=== PATIENT | male | born 1950 | race Two or more races ===

== ENCOUNTER 2017-03-22 17:47 | Inpatient (IN) | payer MEDICARE, OTHER ==
[~2017-03-22] VITALS: Ht 177.8 cm; Wt 78.9 kg
[2017-03-22 20:00] VITALS: BP 127/75
[2017-03-22] MEDS ORDERED: ESCI20TA PO (21:19)
[2017-03-22] MEDS ORDERED: CEPH500C2 PO (21:19)
[2017-03-22] MEDS ORDERED: LEVO80CA PO (21:19)
[2017-03-22] MEDS ORDERED: CLON0.5T4 PO (21:19)
[2017-03-22] MEDS ORDERED: ATOR40TA PO (21:19)
[2017-03-22] MEDS ORDERED: LAMO200T39 PO (21:19)
[2017-03-22] MEDS ORDERED: RIFA300C4 PO (21:19)
[2017-03-22] MEDS ORDERED: LOSA50TA21 PO (21:19)
[2017-03-22] MEDS ORDERED: ARMO150T4 PO (21:19)
[2017-03-22 23:58] VITALS: BP 128/88
[2017-03-23] VITALS: BP 128/88
[2017-03-23] MEDS ORDERED: MAGNESIUM HYDROXIDE 30 ML UDC PO PRN (00:30)
[2017-03-23] MEDS ORDERED: ACETAMINOPHEN 325 MG TABLET PO PRN (00:30)
[2017-03-23] MEDS ORDERED: ZOLPIDEM TARTRATE 5 MG TABLET PO PRN ×2 (00:30→09:30)
[2017-03-23] MEDS ORDERED: HYDROCODONE/APAP 5/325MG 1 EACH TABLET PO PRN (00:30)
[2017-03-23] MEDS ORDERED: ONDANSETRON HCL/PF 4 MG/2 ML VIAL IVP PRN (00:30)
[2017-03-23] MEDS ORDERED: Z GUARD REMEDY 2 OZ OINT TP PRN (00:30)
[2017-03-23] MEDS ORDERED: MAG HYDROX/AL HYDROX/SIMETH 30 ML UDC PO PRN (00:30)
[2017-03-23 08:00] VITALS: BP 152/72
--- NOTE | 2017-03-23 08:00 | NUR ---
MS NR RECEIVED ON BED, AWAKE,ALERT,ORIENTED X4,NOT IN ANY FORM OF DISTRESS, RESPIRATIONS EVEN AND UNLABORED,NO SOB NOTED. LUNG ARE CLEAR,ABDOMEN SOFT,POSITIVE BOWEL SOUNDS, DENIES PAIN AT THIS TIME, WILL MONITOR PATIENT'S CONDITION.
[2017-03-23] MEDS ORDERED: Medication Not On Formulary EA (Armodafinil (Nuvigil) 1 TAB) PO SCH (09:00)
[2017-03-23] MEDS ORDERED: LEVOMILNACIPRAN HYDROCHLORIDE 80 MG PO SCH (09:00)
[2017-03-23] MEDS ORDERED: ATORVASTATIN 40 MG TABLET PO SCH (09:00)
--- NOTE | 2017-03-23 09:13 | NUR ---
MS CERRATO BREAKFAST SERVED,WAITING FOR DUE MEDS TO VERIFY.
[2017-03-23] MEDS ORDERED: ESCITALOPRAM OXALATE (10 MG) 10 MG TABLET PO SCH (09:30)
[2017-03-23] MEDS: CEPHALEXIN MONOHYDRATE 500 MG CAPSULE PO SCH ×3 (09:32→18:10)
[2017-03-23] MEDS: RIFAMPIN 300 MG CAPSULE PO SCH ×2 (09:32→18:10)
[2017-03-23] MEDS: clonazePAM 0.5 MG TABLET PO SCH ×2 (09:33→18:10)
[2017-03-23] MEDS: LOSARTAN POTASSIUM 50 MG TABLET PO SCH (09:33)
[2017-03-23] MEDS: LamoTRIgine 100 MG TABLET PO SCH (09:39)
[2017-03-23] MEDS ORDERED: ESCITALOPRAM OXALATE (10 MG) 10 MG TABLET PO ONE (10:00)
[2017-03-23 10:35] LABS: CALCIUM, SERUM 9.2 mg/dL (8.5-10.1); MAGNESIUM 2.4 mg/dL (1.8-2.4); PHOSPHORUS 3.7 mg/dL (2.5-4.9); POTASSIUM 4.2 mmol/L (3.5-5.1)
--- NOTE | 2017-03-23 10:50 | NUR ---
ms rn was seen by dr. leydi solomon/ orders made and carried out.
[2017-03-23 12:00] VITALS: BP 129/93
--- NOTE | 2017-03-23 12:00 | NUR ---
MS RN TOLD PATIENT THAT PROCEDURE WILL BE DONE AFTER BASIC ACOUSTIC ANALYST IS DONE W/ ONE PATIENT.
[2017-03-23 12:23] LABS: BASOPHILS % (AUTO) 0.7 % (0.0-2.0); EOSINOPHILS # (AUTO) 0.2 /CMM (0.0-0.7); EOSINOPHILS % (AUTO) 4.5 % (0.0-6.0); HEMATOCRIT 46 % (39-51); HEMOGLOBIN 15.5 g/dL (13.5-17.5); LYMPHOCYTES # (AUTO) 1.8 /CMM (0.8-4.8); LYMPHOCYTES % (AUTO) 46.9 % (20.0-44.0); MEAN CORPUSCULAR HEMOGLOBIN 30 PG (26.0-33.0); MEAN CORPUSCULAR HGB CONC 34 g/dl (31.0-36.0); MEAN CORPUSCULAR VOLUME 90 fL (80-96); MONOCYTES # (AUTO) 0.7 /CMM (0.1-1.30); MONOCYTES % (AUTO) 17.9 % (2.0-12.0); NEUTROPHILS # (AUTO) 1.2 /CMM (1.8-8.9); PLATELET COUNT (AUTO) 200 /CMM (150-450); RDW COEFFICIENT OF VARIATION 13.5 (11.5-15.0); RED BLOOD CELL COUNT(AUTO) 5.17 MIL/uL (4.5-6.0); WHITE BLOOD COUNT (AUTO) 3.9 K/uL (4.3-11.0)
--- NOTE | 2017-03-23 13:00 | NUR ---
MS RN ECHO AND DUPPLEX DONE, WILL WAIT FOR RESULT.
[2017-03-23 13:27] LABS: MONOCYTES % (MANUAL) 12 % (0-11.0); NEUTROPHILS % (MANUAL) 40 (42-76); REACTIVE LYMPHOCYTES 1 % (0-0)
[2017-03-23 13:28] LABS: EOSINOPHILS % (MANUAL) 9 % (0-4); LYMPHOCYTES % (MANUAL) 38 % (16-48)
[2017-03-23] MEDS: ENOXAPARIN SODIUM 80 MG/0.8 ML DISP.SYRIN SQ SCH ×2 (13:58→23:59)
--- NOTE | 2017-03-23 14:00 | NUR ---
MS RN NOTIFIED DR. ROCHA, ABOUT DUPPLEX AND ECHO RESULT, NO FURTHER ORDERS NOTED.
--- NOTE | 2017-03-23 15:00 | NUR ---
MS RN WANTS TO SPEAK W/ RAMIRO ROBLES MD.
--- NOTE | 2017-03-23 15:40 | NUR ---
MS SAQIB ROCHA TEXED BACK THAT SHE WILL ANSWER AND ADDRESS ALL QUESTIONS IN AM.
[2017-03-23 16:00] VITALS: BP 138/88
--- NOTE | 2017-03-23 16:00 | NUR ---
MS RN, WAS SEEN BY BOAT OFFICER, COMPLAINING A LOT. CHARGE NURSE AWARE.
--- NOTE | 2017-03-23 17:00 | NUR ---
MS DOOR LINER HELPER NURSE TEXT DR. WILKINSON TO SEE PATIENT.
--- NOTE | 2017-03-23 18:00 | NUR ---
MS RN CALLED, WILL SEE PATIENT IN AN HOUR, PATIENT NOTIFIED.
--- NOTE | 2017-03-23 18:32 | NUR ---
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 He is ambulatory and independent with adl's. can provide transportation when discharge. Addendum: 03/23/17 at 1833 by LUZ BERNAL RN Amended: Links added.
--- NOTE | 2017-03-23 18:32 | NUR ---
MS RN ON BED,DUE MEDS GIVEN,TOLERATED WELL.
--- NOTE | 2017-03-23 18:41 | NUR ---
MS RN ON BED, WILL ENDORSE TO SAFETY AND HEALTH MANAGER FOR CONTINUITY OF CARE.
[2017-03-23 20:00] VITALS: BP 116/69
--- NOTE | 2017-03-23 20:00 | NUR ---
RN NOTES RESTING COMFORTABLY IN BED WITH NO RESPIRATORY DISTRESS OR SHORTNESS OF BREATH. BREATHING EVEN AND UNLABORED. NO COMPLAINT OF PAIN. ALERT AND ORIENTED. VERBALLY ABLE TO COMMUNICATE NEEDS. AMBULATORY. CONTINENT OF BOWEL AND BLADDER FUNCTION. NEEDS ATTENDED. KEPT CLEAN AND DRY. WILL CONTINUE TO MONITOR.
[2017-03-24] VITALS: BP 135/85
[2017-03-24 04:00] VITALS: BP 132/90
--- NOTE | 2017-03-24 07:08 | NUR ---
RN CLOSING NOTES NO DISTRESS NOTED, BREATHING EVEN AND UNLABORED. NO MANIFESTATION OF PAIN OR DISCOMFORT. NO SIGNIFICANT CHANGE OF CONDITION. WILL ENDORSE TO AM SHIFT FOR CONTINUITY OF CARE
--- NOTE | 2017-03-24 07:15 | NUR ---
FLAME HARDENING MACHINE SETTER OPENING NOTE RECEIVED SBAR REPORT AT THE BEDSIDE. PATIENT IS A/OX4, AWAKE AND COOPERATIVE. PATIENT IS IN BED, BED IS LOCKED, IN LOWEST POSITION, SIDE RIALS UP X 2. DENIES PAIN AT THIS TIME. REPORTS DISCOMFORT AT RAC IV SITE WHEN FOLDING THE ARM. NO S/S OF INFILTRATION PRESENT. PATIENT STATED HE WILL THINK ABOUT AGREEING TO INSERTION OF ANOTHER IV AT A DIFFERENT SITE. CHEST IS RISING EQUALLY BILATERALLY. SPO2 98% RA. PATIENT WAS EDUCATED TO CALL FOR ASSISTANCE USING THE CALL LIGHT AND WAS ABLE TO VERBALIZE UNDERSTANDING OF THE TEACHING. CALL LIGHT WITHIN REACH. ALL NEEDS ATTENDED TO. WILL CONTINUE TO ASSESS/MONITOR THROUGHOUT THE SHIFT.
--- NOTE | 2017-03-24 07:17 | NUR ---
[employer] NOTE EXTERNAL JUKE BOX MECHANIC READING SR 97
[2017-03-24 07:46] LABS: BASOPHILS % (AUTO) 0.5 % (0.0-2.0); EOSINOPHILS # (AUTO) 0.1 /CMM (0.0-0.7); EOSINOPHILS % (AUTO) 2.9 % (0.0-6.0); HEMATOCRIT 48 % (39-51); HEMOGLOBIN 16.4 g/dL (13.5-17.5); LYMPHOCYTES # (AUTO) 2.5 /CMM (0.8-4.8); LYMPHOCYTES % (AUTO) 51.5 % (20.0-44.0); MEAN CORPUSCULAR HEMOGLOBIN 30 PG (26.0-33.0); MEAN CORPUSCULAR HGB CONC 34 g/dl (31.0-36.0); MEAN CORPUSCULAR VOLUME 88 fL (80-96); MONOCYTES # (AUTO) 0.7 /CMM (0.1-1.30); MONOCYTES % (AUTO) 13.8 % (2.0-12.0); NEUTROPHILS # (AUTO) 1.5 /CMM (1.8-8.9); NEUTROPHILS % (AUTO) 31.3 % (43.0-81.0); PLATELET COUNT (AUTO) 208 /CMM (150-450); RDW COEFFICIENT OF VARIATION 13.3 (11.5-15.0); RED BLOOD CELL COUNT(AUTO) 5.49 MIL/uL (4.5-6.0); WHITE BLOOD COUNT (AUTO) 4.9 K/uL (4.3-11.0)
[2017-03-24 08:00] VITALS: BP 131/94
[2017-03-24 08:08] LABS: CREATININE 1.1 mg/dL (0.6-1.3); MAGNESIUM 2.1 mg/dL (1.8-2.4); PHOSPHORUS 3.1 mg/dL (2.5-4.9); POTASSIUM 3.6 mmol/L (3.5-5.1)
[2017-03-24] MEDS ORDERED: ESCITALOPRAM OXALATE (10 MG) 10 MG TABLET PO SCH (09:00)
[2017-03-24] MEDS: CEPHALEXIN MONOHYDRATE 500 MG CAPSULE PO SCH ×2 (09:24→13:17)
[2017-03-24] MEDS: RIFAMPIN 300 MG CAPSULE PO SCH (09:24)
[2017-03-24] MEDS: LOSARTAN POTASSIUM 50 MG TABLET PO SCH (09:24)
[2017-03-24] MEDS: clonazePAM 0.5 MG TABLET PO SCH (09:25)
[2017-03-24] MEDS: LamoTRIgine 100 MG TABLET PO SCH (09:25)
--- NOTE | 2017-03-24 09:34 | NUR ---
MS RN NOTE PATIENT STATED HE DOES NOT TO TAKE ATORVASTATIN IN THE MORNING, HE ALWAYS TAKES IT AT NIGHT AT HOME. PATIENT STATED HIS LOXENOX DOSE WAS ADMINISTERED LAST NIGHT AT MIDNIGHT AND HE WANTS TO RECEIVE THE LOVENOX Q 12 HRS. ASKED TO RECEIVE LOVENOX AT 12 NOON. PER PATIENT'S EMAR LOVENOX ADMINISTERED AT [id number]. WILL CLARIFY WITH THE PHARMACY.
--- NOTE | 2017-03-24 10:07 | NUR ---
MS RN NOTE SPOKE TO PHARMACIST ASHOK. TOLD THE PHARMACIST THAT PATIENT IS ASKING FOR LIPITOR TO BE CHANGED AT 9 PM. TOLD THE PHARMACIST THAT PATIENT REQUESTS THE LOVENOX TO BE ADMINISTERED AT 1200PM SINCE HIS NIGHT DOSE WAS ADMINISTERED AT MIDNIGHT. PER ASHOK THE PHARMACIST IT IS OK TO CHANGE THE TIME TO 1200PM.
[2017-03-24] MEDS ORDERED: ENOXAPARIN SODIUM 80 MG/0.8 ML DISP.SYRIN SQ SCH (12:00)
--- NOTE | 2017-03-24 15:25 | NUR ---
MS RN NOTE RECEIVED DISCHARGE ORDER. PREPARING DISCHARGE INSTRUCTIONS/EDUCATION MATERIALS.
[2017-03-24] MEDS ORDERED: ENOX80DI SQ (15:28)
[2017-03-24 16:00] VITALS: BP 126/76
--- NOTE | 2017-03-24 16:43 | NUR ---
MS RN DISCHARGING NOTE DISCHARGE ORDER RECEIVED AND DISCHARGE INSTRUCTIONS PROVIDED TO PATIENT VIA TEACH BACK METHOD. PATIENT VERBALIZED FULL UNDERSTANDING OF THE TEACHINGS. MEDICATION ENOXAPARIN PRESCRIPTION PROVIDED. ALL BELONGINGS ARE ACCOUNTED FOR. IV CATHETER REMOVED WITH THE TIP INTACT, OCCLUSIVE DRESSING APPLIED. PATIENT IS LEAVING THE UNIT VIA WHEELCHAIR ACCOMPANIED BY THE NURSE IN STABLE CONDITION. VS TOBIASL.
[2017-03-24] MEDS ORDERED: ATORVASTATIN 40 MG TABLET PO SCH (22:00)
[2017-03-25 08:52] LABS: HOMOCYSTEINE, PLASMA 15.7 umol/L (0.0-15.0)
[2017-03-26 21:09] LABS: *CARD ANTI-CARDIOLIPIN AB IgA <9 APL U/mL (0-11); *CARD ANTI-CARDIOLIPIN AB IgG <9 GPL U/mL (0-14); *CARD ANTI-CARDIOLIPIN AB IgM 20 MPL U/mL (0-12)
[2017-03-27 08:09] LABS: *ANTITHROMBIN III AG 103 % (72-124); *DILUTE PROTHROMBIN TIME (dPT) 43.6 sec (0.0-55.0); *PTT-LA 47.9 sec (0.0-51.9); *THROMBIN TIME 19.9 sec (0.0-23.0); *dPT CONFIRM RATIO 0.86 Ratio (0.00-1.40); *dRVVT 36.5 sec (0.0-47.0); PROTEIN C ACTIVITY 120 % (73-180); PROTEIN S ACTIVITY 66 % (63-140)
[2017-03-28 06:09] LABS: *INTERPRETATION Comment: (.)
[2017-04-09 16:14] LABS: *FACTOR II, DNA ANALYSIS Negative (.)
== END 2017-03-24 17:00 | disposition home or self-care (01) | DRG 176 ==
LOC: TELE 19:48 → MED 03-24 08:38
PROVIDERS: ADMIT Internal Medicine; ATTEND Internal Medicine
DX: I26.99 Other pulmonary embolism without acute cor pulmonale (principal); D68.59 Other primary thrombophilia; T84.59XA Infection and inflammatory reaction due to other internal joint prosthesis, initial encounter; I82.541 Chronic embolism and thrombosis of right tibial vein; Z86.711 Personal history of pulmonary embolism; F32.9 Major depressive disorder, single episode, unspecified; F41.9 Anxiety disorder, unspecified; Z79.2 Long term (current) use of antibiotics; Y83.8 Other surgical procedures as the cause of abnormal reaction of the patient, or of later complication, without mention of misadventure at the time of the procedure; Y92.009 Unspecified place in unspecified non-institutional (private) residence as the place of occurrence of the external cause
CPT/HCPCS: 36415; 80048-TC; 81240; 81241; 83090; 83735-TC; 84100-TC; 85025-TC; 85300; 85301; 85303; 85613; 85670; 85705; 85732; 86147; 87081-TC; 93307-TC; 93970-TC; J1650; Z7610